=== PATIENT | female | born 2005 | race African-American/Black ===

== ENCOUNTER 2025-04-26 13:39 | Emergency (ER) | payer OTHER ==
[~2025-04-26] VITALS: Ht 154.9 cm; Wt 54.4 kg
[~2025-04-26 13:39] MED LIST: AMOX1TAB15 PO; CARV3 PO; DOXY-354 PO; INSLAN SQ
[2025-04-26] MEDS ORDERED: INSU100I24 SQ (13:55)
[2025-04-26] MEDS ORDERED: INSU100I56 SQ (13:55)
[2025-04-26 13:56] VITALS: TEMP 98.2
[2025-04-26 17:51] VITALS: BP 121/88; PULSE 108; RESP 18; O2SAT 100
== END 2025-04-26 19:03 | disposition home or self-care (01) ==
LOC: EMS 13:39
DX: M54.2 Cervicalgia (principal); M25.532 Pain in left wrist; E11.9 Type 2 diabetes mellitus without complications; Z79.4 Long term (current) use of insulin; Z88.6 Allergy status to analgesic agent; Z87.891 Personal history of nicotine dependence; V49.9XXA Car occupant (driver) (passenger) injured in unspecified traffic accident, initial encounter; Y93.89 Activity, other specified; Y92.410 Unspecified street and highway as the place of occurrence of the external cause; Y99.8 Other external cause status
CPT/HCPCS: 70450; 72125; 82962; 99284